=== PATIENT | male | born 1935 | race Caucasian/White ===

== ENCOUNTER 2020-03-07 13:46 | Observation (INO) ==
[2020-03-07 14:23] LABS: Basophils # 0.1 K/mcL (0.0-0.2); Basophils % 0.8 %; Eosinophils # 0.2 K/mcL (0.0-0.6); Eosinophils % 3.1 %; Hematocrit 45.5 % (37.5-50.1); Hemoglobin 14.9 g/dL (12.9-16.9); Immature Granulocytes % 0.3 % (0-4); Lymphocytes # 1.7 K/mcL (0.6-4.6); Lymphocytes % 27.4 %; Mean Corpuscular HGB Conc 32.7 g/dL (31.6-35.5); Mean Corpuscular Hemoglobin 32.8 pg (28.0-33.3); Mean Corpuscular Volume 100.2 fL (83.0-100.0); Mean Platelet Volume 9.2 fL (9.4-12.4); Monocytes # 0.9 K/mcL (0.0-1.3); Monocytes % 14.2 %; Neutrophils # 3.4 K/mcL (1.6-8.9); Platelet Count 259 K/mcL (140-400); Red Blood Count 4.54 M/mcL (4.19-5.50); Red Cell Distribution Width 12.5 % (11.5-14.5); Segmented Neutrophils % 54.2 %; White Blood Count 6.2 K/mcL (4.3-11.1)
[2020-03-07 14:43] LABS: BUN/Creatinine Ratio 13 (6-26); Blood Urea Nitrogen 32 mg/dL (8-23); Calcium 9.6 mg/dL (8.6-10.3); Carbon Dioxide 28 mEq/L (23-29); Chloride 97 mEq/L (98-107); Glucose 174 mg/dL (70-105); Osmolality,Calculated 293 (280-300); Potassium 4.3 mEq/L (3.5-5.1); Sodium 136 mEq/L (136-145); Troponin I < 0.03 ng/mL (< 0.04); eGFR For African Americans 31 (> 60); eGFR For Non-African Americans 25 (> 60)
[2020-03-07] MEDS ORDERED: Naloxone 0.4 MG/ML INJ IVP PRN (16:07)
[2020-03-07] MEDS ORDERED: Ondansetron 4 MG/2 ML VIAL IVP PRN (16:07)
[2020-03-07] MEDS ORDERED: *HR* LORazepam 2 MG/ML VIAL IVP PRN (16:19)
[2020-03-07 16:23] LABS: Thyroid Stimulating Hormone 0.167 mcIU/mL (0.340-5.600)
[2020-03-07 16:36] LABS: Folate > 22.3 ng/mL (3.0-16.0); Vitamin B12 452 pg/mL (250-1100)
[2020-03-07] MEDS: 0.9 % Sodium Chloride 1,000 ML IVC SCH (18:03)
[2020-03-07] MEDS: *HR* Heparin 5,000 UNIT/ML VIAL SQ SCH (18:03)
[2020-03-07] MEDS: Melatonin 3 MG TABLET PO SCH (21:14)
[2020-03-08 03:15] LABS: Mean Corpuscular HGB Conc 32.8 g/dL (31.6-35.5); Mean Corpuscular Hemoglobin 32.7 pg (28.0-33.3); Mean Corpuscular Volume 99.8 fL (83.0-100.0); Mean Platelet Volume 9.2 fL (9.4-12.4); Platelet Count 216 K/mcL (140-400); Red Blood Count 4.01 M/mcL (4.19-5.50); Red Cell Distribution Width 12.4 % (11.5-14.5); White Blood Count 5.9 K/mcL (4.3-11.1)
[2020-03-08 03:20] LABS: Hemoglobin 13.1 g/dL (12.9-16.9)
[2020-03-08 03:31] LABS: Calcium 8.4 mg/dL (8.6-10.3); Magnesium 2.2 mg/dL (1.6-2.6); Potassium 3.7 mEq/L (3.5-5.1)
[2020-03-08] MEDS: 0.9 % Sodium Chloride 1,000 ML IVC SCH (04:38)
[2020-03-08] MEDS: *HR* Heparin 5,000 UNIT/ML VIAL SQ SCH ×2 (04:39→16:26)
[2020-03-08] MEDS ORDERED: polyethylene glycoL 3350 17 GM POWD.PACK PO PRN (11:30)
[2020-03-08] MEDS: NIFEdipine XL (24 HR) 30 MG TAB.ER.24 PO SCH (12:01)
[2020-03-08] MEDS ORDERED: carvediloL 25 MG TABLET PO SCH (17:00)
[2020-03-08] MEDS: Melatonin 3 MG TABLET PO SCH (19:59)
[2020-03-08] MEDS ORDERED: FOSINOPRIL SODIUM 40 MG PO SCH (21:00)
[2020-03-09] MEDS: *HR* Heparin 5,000 UNIT/ML VIAL SQ SCH ×2 (05:22→16:26)
[2020-03-09] MEDS: Aspirin 81 MG TAB.CHEW PO SCH (08:03)
[2020-03-09] MEDS: NIFEdipine XL (24 HR) 30 MG TAB.ER.24 PO SCH (08:03)
[2020-03-09] MEDS: Furosemide 40 MG TABLET PO SCH (08:03)
[2020-03-09] MEDS ORDERED: NIFEdipine XL (24 HR) 30 MG TAB.ER.24 PO SCH (09:00)
[2020-03-09] MEDS ORDERED: Multivit/Ca/Min/Fe/FA 1 TAB TABLET PO SCH (09:00)
[2020-03-09] MEDS: Melatonin 3 MG TABLET PO SCH (20:23)
[2020-03-10] MEDS: *HR* Heparin 5,000 UNIT/ML VIAL SQ SCH (05:07)
[2020-03-10 08:00] VITALS: BP 201/84
[2020-03-10] MEDS: Furosemide 40 MG TABLET PO SCH (09:02)
[2020-03-10] MEDS: Aspirin 81 MG TAB.CHEW PO SCH (09:02)
[2020-03-10] MEDS: NIFEdipine XL (24 HR) 30 MG TAB.ER.24 PO SCH (09:02)
== END 2020-03-10 12:22 | disposition home or self-care (01) ==
LOC: EMEROOARM 13:46 → 2ANU 13:46
PROVIDERS: ADMIT Family Medicine; ATTEND Family Medicine

== ENCOUNTER 2021-03-26 22:12 | Observation (INO) ==
[2021-03-26 22:57] LABS: Basophils % 0.2 %; Eosinophils % 0.2 %; Hematocrit 37.7 % (37.5-50.1); Hemoglobin 12.6 g/dL (12.9-16.9); Immature Granulocytes % 0.9 % (0-4); Lymphocytes # 1.8 K/mcL (0.6-4.6); Lymphocytes % 10.6 %; Mean Corpuscular HGB Conc 33.4 g/dL (31.6-35.5); Mean Corpuscular Hemoglobin 33.5 pg (28.0-33.3); Mean Corpuscular Volume 100.3 fL (83.0-100.0); Mean Platelet Volume 9.3 fL (9.4-12.4); Monocytes # 1.9 K/mcL (0.0-1.3); Neutrophils # 13.4 K/mcL (1.6-8.9); Platelet Count 228 K/mcL (140-400); Red Blood Count 3.76 M/mcL (4.19-5.50); Segmented Neutrophils % 77.1 %; White Blood Count 17.3 K/mcL (4.3-11.1)
[2021-03-26 23:18] LABS: Calcium 8.8 mg/dL (8.6-10.3); Potassium 4.4 mEq/L (3.5-5.1)
[2021-03-26 23:35] LABS: Troponin I 0.05 ng/mL (< 0.04)
[2021-03-26] MEDS ORDERED: 0.9 % Sodium Chloride 1,000 ML IV ONE (23:48)
[2021-03-27] MEDS ORDERED: Naloxone 0.4 MG/ML INJ IVP PRN (01:40)
[2021-03-27] MEDS ORDERED: *HR* Promethazine 25 MG/ML VIAL IM PRN (01:40)
[2021-03-27] MEDS ORDERED: Acetaminophen 325 MG TABLET PO PRN (01:40)
[2021-03-27] MEDS ORDERED: *HR* HYDROcodone/Acet 5/325 mg TABLET PO PRN (01:40)
[2021-03-27 02:17] LABS: Bacteria,Urine Few per hpf (None-Few); Bilirubin,Urine Negative (Negative); Blood,Urine Large (Negative); Clarity,Urine Ex.Turbid (Clear); Color,Urine Yellow (Yellow); Glucose,Urine (UA) Normal (Normal); Ketones,Urine Negative (Negative); Leukocyte Esterase,Urine Large (Negative); Nitrite,Urine Negative (Negative); PH,Urine 5.5 pH Units (5.0-8.0); Protein,Urine 70 mg/dL (Neg-Trace); RBC,Urine TNTC per hpf (0-3); Specific Gravity,Urine 1.012 (1.010-1.025); Urobilinogen,Urine Normal (Normal); WBC,Urine TNTC per hpf (0-3)
[2021-03-27] MEDS ORDERED: cefTRIAXone 1,000 MG in Water for inj. (sterile) 10 ML IVP ONE (02:32)
[2021-03-27] MEDS: cefTRIAXone 1,000 MG in 0.9 % Sodium Chloride Mini Bag 100 ML IVPB SCH (04:01)
[2021-03-27] MEDS: 0.9 % Sodium Chloride 1,000 ML IVC SCH ×2 (04:01→15:30)
[2021-03-27 04:21] LABS: Basophils # 0.1 K/mcL (0.0-0.2); Basophils % 0.3 %; Eosinophils % 0.1 %; Hematocrit 38.6 % (37.5-50.1); Hemoglobin 12.6 g/dL (12.9-16.9); Immature Granulocytes % 0.9 % (0-4); Lymphocytes # 1.5 K/mcL (0.6-4.6); Mean Corpuscular HGB Conc 32.6 g/dL (31.6-35.5); Mean Corpuscular Hemoglobin 33.7 pg (28.0-33.3); Mean Corpuscular Volume 103.2 fL (83.0-100.0); Mean Platelet Volume 9.2 fL (9.4-12.4); Monocytes # 1.5 K/mcL (0.0-1.3); Monocytes % 10.3 %; Neutrophils # 11.7 K/mcL (1.6-8.9); Platelet Count 204 K/mcL (140-400); Red Blood Count 3.74 M/mcL (4.19-5.50); Segmented Neutrophils % 78.4 %; White Blood Count 14.9 K/mcL (4.3-11.1)
[2021-03-27 04:30] LABS: INR 1.2; Prothrombin Time 13.4 Seconds (9.4-12.1)
[2021-03-27 04:40] LABS: Calcium 8.6 mg/dL (8.6-10.3); Magnesium 2.1 mg/dL (1.6-2.6); Phosphorous 3.2 mg/dL (2.7-4.5); Potassium 3.9 mEq/L (3.5-5.1)
[2021-03-27] MEDS ORDERED: Perflutren Lipid Microsphere 1.3 ML in 0.9 % Sodium Chloride 8.7 ML IVP PRN (05:15)
[2021-03-27] MEDS ORDERED: carvediloL 6.25 MG TABLET PO SCH (08:00)
[2021-03-27 09:22] LABS: Chol/HDL Ratio 3.3 (0-4.9)
[2021-03-27 09:31] LABS: Troponin I 0.06 ng/mL (< 0.04)
[2021-03-27] MEDS: Aspirin 81 MG TAB.CHEW PO SCH (09:41)
[2021-03-27] MEDS: carvediloL 6.25 MG TABLET PO SCH ×2 (09:41→16:59)
[2021-03-27] MEDS: Lactobacillus 1 EACH CAP.SPRINK PO SCH ×2 (09:41→20:13)
[2021-03-27 09:45] LABS: Folate 16.9 ng/mL (3.0-16.0)
[2021-03-27 10:29] LABS: Thyroid Stimulating Hormone 14.617 mcIU/mL (0.340-5.600)
[2021-03-27 10:37] LABS: Estimated Average Glucose 131 mg/dl; Hemoglobin A1C 6.2 %
[2021-03-27] MEDS: NIFEdipine XL (24 HR) 30 MG TAB.ER.24 PO SCH (15:21)
[2021-03-28] MEDS: carvediloL 6.25 MG TABLET PO SCH (08:51)
[2021-03-28] MEDS: NIFEdipine XL (24 HR) 30 MG TAB.ER.24 PO SCH (08:51)
[2021-03-28] MEDS: Lactobacillus 1 EACH CAP.SPRINK PO SCH ×2 (08:51→20:08)
[2021-03-28] MEDS: Cholecalciferol (D-3) 1,000 UNIT (25MCG) TABLET PO SCH (08:51)
[2021-03-28] MEDS: Aspirin 81 MG TAB.CHEW PO SCH (08:51)
[2021-03-28] MEDS: Furosemide 40 MG TABLET PO SCH (08:51)
[2021-03-28] MEDS: cefTRIAXone 1,000 MG in 0.9 % Sodium Chloride Mini Bag 100 ML IVPB SCH (08:51)
[2021-03-28 09:17] LABS: Basophils % 0.4 %; Eosinophils # 0.3 K/mcL (0.0-0.6); Eosinophils % 2.8 %; Hemoglobin 11.9 g/dL (12.9-16.9); Immature Granulocytes % 0.5 % (0-4); Lymphocytes # 1.8 K/mcL (0.6-4.6); Lymphocytes % 16.2 %; Mean Corpuscular HGB Conc 33.1 g/dL (31.6-35.5); Mean Corpuscular Hemoglobin 33.6 pg (28.0-33.3); Mean Corpuscular Volume 101.7 fL (83.0-100.0); Mean Platelet Volume 9.5 fL (9.4-12.4); Monocytes # 1.1 K/mcL (0.0-1.3); Monocytes % 9.4 %; Neutrophils # 7.9 K/mcL (1.6-8.9); Platelet Count 229 K/mcL (140-400); Red Blood Count 3.54 M/mcL (4.19-5.50); Red Cell Distribution Width 12.7 % (11.5-14.5); Segmented Neutrophils % 70.7 %; White Blood Count 11.2 K/mcL (4.3-11.1)
[2021-03-28 09:38] LABS: Calcium 8.4 mg/dL (8.6-10.3); Potassium 3.6 mEq/L (3.5-5.1)
[2021-03-29] MEDS: Furosemide 40 MG TABLET PO SCH (09:43)
[2021-03-29] MEDS: cefTRIAXone 1,000 MG in 0.9 % Sodium Chloride Mini Bag 100 ML IVPB SCH (09:43)
[2021-03-29] MEDS: NIFEdipine XL (24 HR) 30 MG TAB.ER.24 PO SCH (09:43)
[2021-03-29] MEDS: Aspirin 81 MG TAB.CHEW PO SCH (09:44)
[2021-03-29] MEDS: Lactobacillus 1 EACH CAP.SPRINK PO SCH ×2 (09:44→20:08)
[2021-03-29] MEDS: Cholecalciferol (D-3) 1,000 UNIT (25MCG) TABLET PO SCH (09:44)
[2021-03-29] MEDS: carvediloL 6.25 MG TABLET PO SCH ×3 (09:46→16:47)
[2021-03-29 12:12] LABS: Basophils % 0.3 %; Eosinophils # 0.2 K/mcL (0.0-0.6); Hematocrit 34.8 % (37.5-50.1); Hemoglobin 11.6 g/dL (12.9-16.9); Immature Granulocytes % 0.6 % (0-4); Lymphocytes # 1.5 K/mcL (0.6-4.6); Mean Corpuscular HGB Conc 33.3 g/dL (31.6-35.5); Mean Corpuscular Hemoglobin 33.2 pg (28.0-33.3); Mean Corpuscular Volume 99.7 fL (83.0-100.0); Mean Platelet Volume 9.8 fL (9.4-12.4); Monocytes # 1.1 K/mcL (0.0-1.3); Neutrophils # 6.9 K/mcL (1.6-8.9); Platelet Count 214 K/mcL (140-400); Red Blood Count 3.49 M/mcL (4.19-5.50); Red Cell Distribution Width 12.5 % (11.5-14.5); Segmented Neutrophils % 71.1 %; White Blood Count 9.8 K/mcL (4.3-11.1)
[2021-03-29 12:24] LABS: Calcium 8.3 mg/dL (8.6-10.3); Potassium 3.2 mEq/L (3.5-5.1)
[2021-03-29] MEDS: *HR* Heparin 5,000 UNIT/ML VIAL SQ SCH ×2 (14:45→20:08)
[2021-03-29] MEDS ORDERED: polyethylene glycoL 3350 17 GM POWD.PACK PO PRN (14:51)
[2021-03-29] MEDS: Sennosides/Docusate Sodium TABLET PO SCH (16:47)
[2021-03-30 02:52] LABS: Potassium 3.8 mEq/L (3.5-5.1)
[2021-03-30 02:53] LABS: Albumin 3.1 g/dL (3.5-5.7); Albumin/Globulin Ratio 0.8 (1.1-2.2); Bilirubin,Total 0.4 mg/dL (0.3-1.0); Calcium 8.2 mg/dL (8.6-10.3); Total Protein 7.1 g/dL (6.4-8.9)
[2021-03-30] MEDS: *HR* Heparin 5,000 UNIT/ML VIAL SQ SCH ×3 (05:09→20:23)
[2021-03-30] MEDS: Sennosides/Docusate Sodium TABLET PO SCH (09:07)
[2021-03-30] MEDS: Furosemide 40 MG TABLET PO SCH (09:07)
[2021-03-30] MEDS: Lactobacillus 1 EACH CAP.SPRINK PO SCH ×2 (09:07→20:22)
[2021-03-30] MEDS: Amoxicillin 500 MG CAPSULE PO SCH ×2 (09:07→20:22)
[2021-03-30] MEDS: Aspirin 81 MG TAB.CHEW PO SCH (09:07)
[2021-03-30] MEDS: NIFEdipine XL (24 HR) 30 MG TAB.ER.24 PO SCH (09:07)
[2021-03-30] MEDS: carvediloL 6.25 MG TABLET PO SCH ×2 (09:07→16:58)
[2021-03-30] MEDS: Cholecalciferol (D-3) 1,000 UNIT (25MCG) TABLET PO SCH (09:08)
[2021-03-30] MEDS: Melatonin 3 MG TABLET PO PRN (20:23)
[2021-03-31 03:35] LABS: Albumin 3.1 g/dL (3.5-5.7); Albumin/Globulin Ratio 0.8 (1.1-2.2); Bilirubin,Total 0.4 mg/dL (0.3-1.0); Calcium 8.3 mg/dL (8.6-10.3); Potassium 3.4 mEq/L (3.5-5.1); Total Protein 7.1 g/dL (6.4-8.9)
[2021-03-31] MEDS: *HR* Heparin 5,000 UNIT/ML VIAL SQ SCH ×3 (05:01→20:12)
[2021-03-31] MEDS: Sennosides/Docusate Sodium TABLET PO SCH (09:50)
[2021-03-31] MEDS: Aspirin 81 MG TAB.CHEW PO SCH (09:50)
[2021-03-31] MEDS: Cholecalciferol (D-3) 1,000 UNIT (25MCG) TABLET PO SCH (09:51)
[2021-03-31] MEDS: Amoxicillin 500 MG CAPSULE PO SCH ×2 (09:51→20:11)
[2021-03-31] MEDS: NIFEdipine XL (24 HR) 30 MG TAB.ER.24 PO SCH (09:51)
[2021-03-31] MEDS: Lactobacillus 1 EACH CAP.SPRINK PO SCH ×2 (09:52→20:11)
[2021-03-31] MEDS ORDERED: lisinopriL 20 MG TABLET PO SCH ×2 (11:00→13:33)
[2021-03-31] MEDS: carvediloL 6.25 MG TABLET PO SCH ×2 (11:49→16:58)
[2021-03-31] MEDS: Furosemide 40 MG TABLET PO SCH (11:49)
[2021-03-31] MEDS: lisinopriL 20 MG TABLET PO SCH (16:55)
[2021-03-31] MEDS: Melatonin 3 MG TABLET PO PRN (20:11)
[2021-04-01] MEDS: *HR* Heparin 5,000 UNIT/ML VIAL SQ SCH ×2 (05:23→15:50)
[2021-04-01] MEDS: NIFEdipine XL (24 HR) 30 MG TAB.ER.24 PO SCH (09:15)
[2021-04-01] MEDS: Aspirin 81 MG TAB.CHEW PO SCH (09:15)
[2021-04-01] MEDS: Sennosides/Docusate Sodium TABLET PO SCH (09:16)
[2021-04-01] MEDS: Cholecalciferol (D-3) 1,000 UNIT (25MCG) TABLET PO SCH (09:16)
[2021-04-01] MEDS: Amoxicillin 500 MG CAPSULE PO SCH ×2 (09:16→20:26)
[2021-04-01] MEDS: lisinopriL 20 MG TABLET PO SCH (09:16)
[2021-04-01] MEDS: Furosemide 40 MG TABLET PO SCH (09:16)
[2021-04-01] MEDS: Lactobacillus 1 EACH CAP.SPRINK PO SCH ×2 (09:17→20:26)
[2021-04-01] MEDS: carvediloL 6.25 MG TABLET PO SCH ×2 (09:17→17:11)
[2021-04-01] MEDS ORDERED: Bisacodyl 10 MG RECTAL SUPPOSITORY RC ONE (09:30)
[2021-04-01] MEDS: Melatonin 3 MG TABLET PO PRN (20:26)
[2021-04-02 05:57] LABS: Calcium 8.4 mg/dL (8.6-10.3); Potassium 3.8 mEq/L (3.5-5.1)
[2021-04-02] MEDS: lisinopriL 20 MG TABLET PO SCH (08:46)
[2021-04-02] MEDS: Sennosides/Docusate Sodium TABLET PO SCH (08:46)
[2021-04-02] MEDS: NIFEdipine XL (24 HR) 30 MG TAB.ER.24 PO SCH (08:46)
[2021-04-02] MEDS: Furosemide 40 MG TABLET PO SCH (08:46)
[2021-04-02] MEDS: Cholecalciferol (D-3) 1,000 UNIT (25MCG) TABLET PO SCH (08:47)
[2021-04-02] MEDS: carvediloL 6.25 MG TABLET PO SCH ×2 (08:47→16:18)
[2021-04-02] MEDS: Lactobacillus 1 EACH CAP.SPRINK PO SCH ×2 (08:47→20:44)
[2021-04-02] MEDS: Amoxicillin 500 MG CAPSULE PO SCH (08:47)
[2021-04-02] MEDS ORDERED: 0.9 % Sodium Chloride 1,000 ML IVC SCH ×3 (11:00→16:15)
[2021-04-02] MEDS ORDERED: Lidocaine -MPF 2% 5 ML VIAL ONE (11:20)
[2021-04-02] MEDS ORDERED: Ondansetron 4 MG/2 ML VIAL ONE (11:20)
[2021-04-02] MEDS ORDERED: Lidocaine -MPF 4% 5 ML AMPUL ONE (11:20)
[2021-04-02] MEDS ORDERED: *HR* Propofol 200 MG/20 ML VIAL IVP ONE (11:21)
[2021-04-02] MEDS ORDERED: *HR* FentaNYL (PF) 100 MCG/2 ML VIAL ONE (11:21)
[2021-04-02] MEDS ORDERED: *HR* Succinylcholine 200 MG/10 ML VIAL IVP ONE (11:23)
[2021-04-02] MEDS ORDERED: Acetaminophen 325 MG TABLET PO PRN ×2 (15:54→16:02)
[2021-04-02] MEDS ORDERED: *HR* Belladonna Alkaloids/Opium 30 MG RECTAL SUPPOSITORY RC PRN ×2 (15:54→16:01)
[2021-04-02] MEDS ORDERED: Ondansetron 4 MG/2 ML VIAL IVP PRN ×2 (15:54→16:01)
[2021-04-02] MEDS ORDERED: Naloxone 0.4 MG/ML INJ IVP PRN ×3 (15:54→16:08)
[2021-04-02] MEDS ORDERED: *HR* Promethazine 25 MG/ML VIAL IM PRN (16:08)
[2021-04-02] MEDS ORDERED: *HR* HYDROcodone/Acet 5/325 mg TABLET PO PRN (16:09)
[2021-04-02] MEDS ORDERED: polyethylene glycoL 3350 17 GM POWD.PACK PO PRN (16:11)
[2021-04-02] MEDS: 0.9 % Sodium Chloride 1,000 ML IVC SCH (16:19)
[2021-04-02] MEDS: *HR* Heparin 5,000 UNIT/ML VIAL SQ SCH (20:44)
[2021-04-02] MEDS ORDERED: Melatonin 3 MG TABLET PO PRN (21:15)
[2021-04-03] MEDS: 0.9 % Sodium Chloride 1,000 ML IVC SCH (00:55)
[2021-04-03 02:50] LABS: Basophils # 0.1 K/mcL (0.0-0.2); Basophils % 0.6 %; Eosinophils # 0.2 K/mcL (0.0-0.6); Eosinophils % 1.5 %; Hematocrit 35.7 % (37.5-50.1); Hemoglobin 11.7 g/dL (12.9-16.9); Immature Granulocytes % 1.2 % (0-4); Lymphocytes # 1.6 K/mcL (0.6-4.6); Lymphocytes % 15.8 %; Mean Corpuscular HGB Conc 32.8 g/dL (31.6-35.5); Mean Corpuscular Hemoglobin 33.3 pg (28.0-33.3); Mean Corpuscular Volume 101.7 fL (83.0-100.0); Mean Platelet Volume 9.3 fL (9.4-12.4); Monocytes # 0.7 K/mcL (0.0-1.3); Monocytes % 7.6 %; Neutrophils # 7.2 K/mcL (1.6-8.9); Platelet Count 317 K/mcL (140-400); Red Blood Count 3.51 M/mcL (4.19-5.50); Red Cell Distribution Width 12.8 % (11.5-14.5); Segmented Neutrophils % 73.3 %; White Blood Count 9.8 K/mcL (4.3-11.1)
[2021-04-03 04:18] LABS: Calcium 8.5 mg/dL (8.6-10.3); Potassium 4.4 mEq/L (3.5-5.1)
[2021-04-03] MEDS: *HR* Heparin 5,000 UNIT/ML VIAL SQ SCH (05:39)
[2021-04-03] MEDS: carvediloL 6.25 MG TABLET PO SCH (08:16)
[2021-04-03] MEDS: Lactobacillus 1 EACH CAP.SPRINK PO SCH (08:17)
[2021-04-03] MEDS ORDERED: NIFEdipine XL (24 HR) 30 MG TAB.ER.24 PO SCH (09:00)
[2021-04-03] MEDS ORDERED: Furosemide 40 MG TABLET PO SCH (09:00)
[2021-04-03] MEDS ORDERED: Cholecalciferol (D-3) 1,000 UNIT (25MCG) TABLET PO SCH (09:00)
[2021-04-03] MEDS ORDERED: Sennosides/Docusate Sodium TABLET PO SCH (09:00)
[2021-04-03] MEDS ORDERED: Melatonin 3 MG TABLET PO PRN (09:00)
[2021-04-03] MEDS ORDERED: lisinopriL 20 MG TABLET PO SCH (09:00)
[2021-04-03 10:58] LABS: Adenovirus Not Detected (Not Detect); Bordetella Pertussis Not Detected (Not Detect); Chlamydophila pneumoniae Not Detected (Not Detect); Coronavirus 229E Not Detected (Not Detect); Coronavirus HKU1 Not Detected (Not Detect); Coronavirus NL63 Not Detected (Not Detect); Coronavirus OC43 Not Detected (Not Detect); Human Metapneumovirus Not Detected (Not Detect); Human Rhinovirus/Enterovirus Not Detected (Not Detect); Influenza A Subtype 2009 H1 Not Detected (Not Detect); Influenza B Not Detected (Not Detect); Mycoplasma pneumoniae Not Detected (Not Detect); Parainfluenza Virus 1 Not Detected (Not Detect); Parainfluenza Virus 2 Not Detected (Not Detect); Parainfluenza Virus 3 Not Detected (Not Detect); Parainfluenza Virus 4 Not Detected (Not Detect); Respiratory Syncytial Virus Not Detected (Not Detect); SARS-CoV-2 Not Detected (Not Detect)
[2021-04-03 11:03] VITALS: BP 131/65; PULSE 60; TEMP 98.3; O2SAT 91
== END 2021-04-03 13:01 ==
LOC: EMEROOARM 22:12 → 3ANU 22:12 → SUATTDRO 03-27 01:57 → 3ANU 03-27 02:41
PROVIDERS: ADMIT Internal Medicine; ATTEND Family Medicine

== ENCOUNTER 2021-04-18 23:43 | Inpatient (IN) ==
[2021-04-19] MEDS ORDERED: Naloxone 0.4 MG/ML INJ IVP PRN (02:38)
[2021-04-19] MEDS ORDERED: Acetaminophen 325 MG TABLET PO PRN (02:38)
[2021-04-19] MEDS ORDERED: Ondansetron 4 MG/2 ML VIAL IVP PRN (02:38)
[2021-04-19] MEDS ORDERED: 0.9 % Sodium Chloride 1,000 ML IVC SCH (02:45)
[2021-04-19 05:16] LABS: Basophils % 0.3 %; Eosinophils # 0.3 K/mcL (0.0-0.6); Eosinophils % 2.1 %; Hematocrit 35.7 % (37.5-50.1); Hemoglobin 11.4 g/dL (12.9-16.9); Immature Granulocytes % 0.4 % (0-4); Lymphocytes # 1.8 K/mcL (0.6-4.6); Lymphocytes % 13.9 %; Mean Corpuscular HGB Conc 31.9 g/dL (31.6-35.5); Mean Corpuscular Hemoglobin 32.8 pg (28.0-33.3); Mean Corpuscular Volume 102.6 fL (83.0-100.0); Mean Platelet Volume 9.6 fL (9.4-12.4); Monocytes # 1.3 K/mcL (0.0-1.3); Monocytes % 10.5 %; Neutrophils # 9.3 K/mcL (1.6-8.9); Platelet Count 256 K/mcL (140-400); Red Blood Count 3.48 M/mcL (4.19-5.50); Red Cell Distribution Width 13.1 % (11.5-14.5); Segmented Neutrophils % 72.8 %; White Blood Count 12.8 K/mcL (4.3-11.1)
[2021-04-19 05:24] LABS: Albumin/Globulin Ratio 0.7 (1.1-2.2); Bilirubin,Total 0.5 mg/dL (0.3-1.0); Calcium 8.6 mg/dL (8.6-10.3); Globulin 4.1 g/dL (2.4-3.5); Potassium 4.3 mEq/L (3.5-5.1); Total Protein 7.1 g/dL (6.4-8.9)
[2021-04-19] MEDS: cefTRIAXone 1,000 MG in 0.9 % Sodium Chloride Mini Bag 100 ML IVPB SCH (08:19)
[2021-04-19] MEDS: Melatonin 3 MG TABLET PO PRN (21:58)
[2021-04-20 01:13] LABS: Basophils # 0.1 K/mcL (0.0-0.2); Basophils % 0.4 %; Eosinophils # 0.6 K/mcL (0.0-0.6); Eosinophils % 4.4 %; Hemoglobin 10.6 g/dL (12.9-16.9); Immature Granulocytes % 0.5 % (0-4); Lymphocytes # 1.8 K/mcL (0.6-4.6); Lymphocytes % 14.2 %; Mean Corpuscular HGB Conc 32.1 g/dL (31.6-35.5); Mean Corpuscular Hemoglobin 32.9 pg (28.0-33.3); Mean Corpuscular Volume 102.5 fL (83.0-100.0); Mean Platelet Volume 9.6 fL (9.4-12.4); Monocytes # 1.4 K/mcL (0.0-1.3); Monocytes % 11.1 %; Neutrophils # 8.9 K/mcL (1.6-8.9); Platelet Count 231 K/mcL (140-400); Red Blood Count 3.22 M/mcL (4.19-5.50); Segmented Neutrophils % 69.4 %; White Blood Count 12.9 K/mcL (4.3-11.1)
[2021-04-20 01:26] LABS: Calcium 8.2 mg/dL (8.6-10.3); Phosphorous 3.4 mg/dL (2.7-4.5); Potassium 3.7 mEq/L (3.5-5.1)
[2021-04-20] MEDS: cefTRIAXone 1,000 MG in 0.9 % Sodium Chloride Mini Bag 100 ML IVPB SCH (08:54)
[2021-04-20] MEDS: carvediloL 25 MG TABLET PO SCH (11:03)
[2021-04-20] MEDS: NIFEdipine XL (24 HR) 30 MG TAB.ER.24 PO SCH (11:04)
[2021-04-20] MEDS: *HR* Heparin 5,000 UNIT/ML VIAL SQ SCH (17:39)
[2021-04-20] MEDS: Bisacodyl 10 MG RECTAL SUPPOSITORY RC SCH (17:39)
[2021-04-20] MEDS: Melatonin 3 MG TABLET PO PRN (20:35)
[2021-04-21] MEDS: *HR* Heparin 5,000 UNIT/ML VIAL SQ SCH ×2 (05:12→16:54)
[2021-04-21 05:52] LABS: Basophils % 0.3 %; Eosinophils # 0.3 K/mcL (0.0-0.6); Eosinophils % 2.5 %; Hematocrit 32.6 % (37.5-50.1); Hemoglobin 10.6 g/dL (12.9-16.9); Immature Granulocytes % 0.6 % (0-4); Lymphocytes # 1.5 K/mcL (0.6-4.6); Lymphocytes % 14.8 %; Mean Corpuscular HGB Conc 32.5 g/dL (31.6-35.5); Mean Corpuscular Hemoglobin 32.9 pg (28.0-33.3); Mean Corpuscular Volume 101.2 fL (83.0-100.0); Mean Platelet Volume 9.7 fL (9.4-12.4); Monocytes # 1.4 K/mcL (0.0-1.3); Monocytes % 14.1 %; Neutrophils # 6.7 K/mcL (1.6-8.9); Platelet Count 210 K/mcL (140-400); Red Blood Count 3.22 M/mcL (4.19-5.50); Red Cell Distribution Width 12.6 % (11.5-14.5); Segmented Neutrophils % 67.7 %; White Blood Count 9.9 K/mcL (4.3-11.1)
[2021-04-21 06:09] LABS: Calcium 8.1 mg/dL (8.6-10.3); Magnesium 1.9 mg/dL (1.6-2.6); Phosphorous 3.5 mg/dL (2.7-4.5); Potassium 3.3 mEq/L (3.5-5.1)
[2021-04-21] MEDS: Bisacodyl 10 MG RECTAL SUPPOSITORY RC SCH (08:09)
[2021-04-21] MEDS: carvediloL 25 MG TABLET PO SCH (08:09)
[2021-04-21] MEDS: cefTRIAXone 1,000 MG in 0.9 % Sodium Chloride Mini Bag 100 ML IVPB SCH (08:09)
[2021-04-21] MEDS: NIFEdipine XL (24 HR) 30 MG TAB.ER.24 PO SCH (08:09)
[2021-04-21] MEDS: Melatonin 3 MG TABLET PO PRN (19:53)
[2021-04-22 01:23] LABS: Basophils # 0.1 K/mcL (0.0-0.2); Basophils % 0.6 %; Eosinophils # 0.5 K/mcL (0.0-0.6); Eosinophils % 5.1 %; Hematocrit 34.9 % (37.5-50.1); Hemoglobin 11.3 g/dL (12.9-16.9); Immature Granulocytes % 0.8 % (0-4); Lymphocytes # 1.7 K/mcL (0.6-4.6); Lymphocytes % 16.2 %; Mean Corpuscular HGB Conc 32.4 g/dL (31.6-35.5); Mean Corpuscular Hemoglobin 32.8 pg (28.0-33.3); Mean Corpuscular Volume 101.5 fL (83.0-100.0); Mean Platelet Volume 9.3 fL (9.4-12.4); Monocytes # 1.6 K/mcL (0.0-1.3); Monocytes % 15.6 %; Neutrophils # 6.5 K/mcL (1.6-8.9); Platelet Count 222 K/mcL (140-400); Red Blood Count 3.44 M/mcL (4.19-5.50); Red Cell Distribution Width 12.5 % (11.5-14.5); Segmented Neutrophils % 61.7 %; White Blood Count 10.5 K/mcL (4.3-11.1)
[2021-04-22 01:40] LABS: Calcium 8.2 mg/dL (8.6-10.3); Potassium 3.6 mEq/L (3.5-5.1)
[2021-04-22] MEDS: *HR* Heparin 5,000 UNIT/ML VIAL SQ SCH ×2 (05:34→18:21)
[2021-04-22] MEDS: carvediloL 25 MG TABLET PO SCH (09:38)
[2021-04-22] MEDS: cefTRIAXone 1,000 MG in 0.9 % Sodium Chloride Mini Bag 100 ML IVPB SCH (09:39)
[2021-04-22] MEDS: Bisacodyl 10 MG RECTAL SUPPOSITORY RC SCH (09:39)
[2021-04-22] MEDS: NIFEdipine XL (24 HR) 30 MG TAB.ER.24 PO SCH (09:39)
[2021-04-22] MEDS: Melatonin 3 MG TABLET PO PRN (23:34)
[2021-04-23 02:07] LABS: Basophils # 0.1 K/mcL (0.0-0.2); Basophils % 0.7 %; Eosinophils # 0.6 K/mcL (0.0-0.6); Eosinophils % 7.2 %; Hematocrit 33.5 % (37.5-50.1); Immature Granulocytes % 1.6 % (0-4); Lymphocytes # 1.9 K/mcL (0.6-4.6); Lymphocytes % 23.7 %; Mean Corpuscular HGB Conc 32.8 g/dL (31.6-35.5); Mean Corpuscular Volume 100.6 fL (83.0-100.0); Mean Platelet Volume 9.7 fL (9.4-12.4); Monocytes # 1.2 K/mcL (0.0-1.3); Monocytes % 15.1 %; Neutrophils # 4.2 K/mcL (1.6-8.9); Platelet Count 219 K/mcL (140-400); Red Blood Count 3.33 M/mcL (4.19-5.50); Red Cell Distribution Width 12.5 % (11.5-14.5); Segmented Neutrophils % 51.7 %
[2021-04-23 02:13] LABS: Calcium 7.9 mg/dL (8.6-10.3); Potassium 3.6 mEq/L (3.5-5.1)
[2021-04-23] MEDS: *HR* Heparin 5,000 UNIT/ML VIAL SQ SCH ×2 (05:28→17:36)
[2021-04-23] MEDS: Bisacodyl 10 MG RECTAL SUPPOSITORY RC SCH (07:32)
[2021-04-23] MEDS: cefTRIAXone 1,000 MG in 0.9 % Sodium Chloride Mini Bag 100 ML IVPB SCH (08:09)
[2021-04-23] MEDS: carvediloL 25 MG TABLET PO SCH (08:10)
[2021-04-23] MEDS: NIFEdipine XL (24 HR) 30 MG TAB.ER.24 PO SCH (08:11)
[2021-04-23] MEDS: Amoxicillin 500 MG CAPSULE PO SCH ×2 (17:35→20:26)
[2021-04-23] MEDS: Melatonin 3 MG TABLET PO PRN (20:28)
[2021-04-24] MEDS: *HR* Heparin 5,000 UNIT/ML VIAL SQ SCH (06:18)
[2021-04-24] MEDS: Bisacodyl 10 MG RECTAL SUPPOSITORY RC SCH (07:59)
[2021-04-24] MEDS: carvediloL 25 MG TABLET PO SCH (07:59)
[2021-04-24] MEDS: Amoxicillin 500 MG CAPSULE PO SCH (07:59)
[2021-04-24] MEDS: NIFEdipine XL (24 HR) 30 MG TAB.ER.24 PO SCH (07:59)
[2021-04-24 13:02] LABS: Influenza A PCR Negative (Negative); Influenza B PCR Negative (Negative); Resp. Syncytial Virus PCR Negative (Negative)
[2021-04-24 14:13] LABS: SARS-CoV-2 by PCR (In House) Negative (Negative)
[2021-04-24 15:13] VITALS: BP 162/71; PULSE 68; TEMP 97.5; O2SAT 96
[2021-04-24] MEDS ORDERED: carvediloL 25 MG TABLET PO SCH (17:00)
== END 2021-04-24 17:26 | DRG 699 ==
LOC: 3ANU → SUATTDRO 04-19 02:16
PROVIDERS: ADMIT Internal Medicine; ATTEND Family Medicine